=== PATIENT | female | born 1995 | race Hispanic/Latino ===

== ENCOUNTER 2021-01-13 07:44 | Outpatient (CLI) | payer OTHER, SELFPAY ==
--- NOTE | ~2021-01-13 | US_ITS ---
EXAMINATION: US OB <=14 wk fetus w TV DATE: 01/13/2021 08:54 INDICATION: Establish dating of during first trimester TECHNIQUE: Real-time pelvic ultrasound utilizing both a transvaginal and transabdominal probe was pe rformed. The interpreting radiologist was not present for the study. COMPARISON: None. FINDINGS: The uterus measures 10.5 x 9.2 x 5.9 cm. There is an intrauterine gestational sac. A yolk sac and fe douglas pole are identified. The crown rump length measures 7 mm, which correlates with an estimated gest ational age of 6 weeks and 5 days. heart motion is identified measuring 116 beats per minute (b pm) by M-mode Doppler. There is suggestion of a 5 cm isoechoic fibroid at the right side of the uteri ne fundus. The right ovary measures 3.7 x 2.1 x 2.5 cm. Vascular flow identified in the right ovary on color Dop pler. The left ovary is not visualized. There is no free fluid in the pelvis. IMPRESSION: 1. Single living fetus with heart rate of 116 bpm. 2. Gestational age by ultrasound of 6 weeks 4 day(s) +/- 4 day(s) with ultrasound estimated date of delivery (YUE) of 09/04/2021. 3. Suggestion of a 5 cm fibroid at the right side of the uterine fundus Reviewed, dictated and finalized at location A. IMPRESSION: 1. Single living fetus with heart rate of 116 bpm. 2. Gestational age by ultrasound of 6 weeks 4 day(s) +/- 4 day(s) with ultraso und estimated date of delivery (YUE) of 09/04/2021. 3. Suggestion of a 5 cm fibroid at the right side of the uterine fundus
== END 2021-01-13 07:45 | disposition home or self-care (01) ==
PROVIDERS: PCP Physician Assistant; Visit Provider Physician Assistant
DX: Z36.87 Encounter for antenatal screening for uncertain dates (principal); Z3A.01 Less than 8 weeks gestation of pregnancy
CPT/HCPCS: 76801; 76817

== ENCOUNTER 2021-02-25 09:50 | Outpatient (CLI) | payer OTHER, SELFPAY ==
--- NOTE | ~2021-02-25 | US_ITS ---
EXAMINATION: US OB <= 14 weeks fetus DATE: 02/25/2021 10:34 INDICATION: Inconclusive viability during late first trimester of TECHNIQUE: Real-time pelvic ultrasound utilizing both a transvaginal and transabdominal probe was pe rformed. The interpreting radiologist was not present for the study. COMPARISON: 01/13/2021 FINDINGS: The uterus measures 13.4 x 6.7 x 10.4 cm. There is an intrauterine gestational sac with single fetus . The crown rump length measures 6.2 cm, which correlates with an estimated gestational age of 12 wee ks and 4 days. heart motion is identified measuring 142 beats per minute (bpm) by M-mode Dopple r. The right ovary measures 2.7 x 5.9 x 2.9 cm. Vascular flow identified in the right ovary on color Dop pler. The left ovary is not visualized. There is no free fluid in the pelvis. IMPRESSION: 1. Single living fetus with heart rate of 142 bpm. 2. Gestational age by ultrasound of 12 weeks 4 day(s) +/- 1 week and 1 day with ultrasound estimated date of delivery (YUE) of 09/05/2021. Reviewed, dictated and finalized at location A. IMPRESSION: 1. Single living fetus with heart rate of 142 bpm. 2. Gestational age by ultrasound of 12 weeks 4 day(s) +/- 1 week and 1 day wit h ultrasound estimated date of delivery (YUE) of 09/05/2021.
== END 2021-02-25 09:51 | disposition home or self-care (01) ==
PROVIDERS: PCP Physician Assistant; Visit Provider Obstetrics & Gynecology
DX: O36.80X0 Pregnancy with inconclusive fetal viability, not applicable or unspecified (principal); Z3A.12 12 weeks gestation of pregnancy
CPT/HCPCS: 76801

== ENCOUNTER 2021-04-06 11:00 | Outpatient (CLI) | payer OTHER, SELFPAY ==
--- NOTE | ~2021-04-06 | US_ITS ---
EXAMINATION: US OB /maternal detail DATE: 04/06/2021 12:49 INDICATION: Second trimester anatomic survey TECHNIQUE: Real-time ultrasound of the pelvis was performed. COMPARISON: 02/25/2021 FINDINGS: There is a single living fetus in vertex presentation. The placenta is posterior and 7 mm from the in ternal cervical os. heart rate is 167 beats per minute (bpm). cardiac activity and movement are noted. The amniotic fluid index is 12.6 cm which is normal. The following anatomy was identified as normal: 4 chamber heart 3 vessel cord cord insertion kidneys urinary bladder stomach spine diaphragm ventricles cisterna magna cerebellum The following biometric data were obtained: Biparietal diameter (BPD): 4.1 cm; head circumference (HC): 15.5 cm; abdominal circumference (AC): 13 .0 cm; femur length (FL): 2.7 cm. These measurements are concordant. Estimated weight is 242 g +/- 36 g, which correlates with the 49th percentile when 09/04/2021 i s used as estimated date of delivery. As single measurements, these parameters are each equal to the following estimated gestational ages w ith ranges of +/- 2 standard deviations: BPD: 18 weeks 4 days +/- 1 weeks 5 days. HC: 18 weeks 3 days +/- 1 weeks 3 days. AC: 18 weeks 4 days +/- 2 weeks 0 days. FL: 18 weeks 3 days +/- 1 weeks 6 days. estimated gestational age based solely on measurements from this exam is 18 weeks 4 days +/- 1 weeks 2 days. IMPRESSION: 1. Single living fetus in vertex presentation. 2. Estimated weight is 242 g +/- 36 g, which correlates with the 49th percentile when 1 is used as estimated date of delivery. 3. Low-lying placenta. Reviewed, dictated and finalized at location A. IMPRESSION: 1. Single living fetus in vertex presentation. 2. Estimated weight is 242 g +/- 36 g, which correlates with the 49th per centile when 09/04/2021 is used as estimated date of delivery. 3. Low-lying placenta.
== END 2021-04-06 11:01 | disposition home or self-care (01) ==
LOC: ANHIMG 11:04
PROVIDERS: PCP Physician Assistant; Visit Provider Obstetrics & Gynecology
DX: Z36.9 Encounter for antenatal screening, unspecified (principal); O44.40 Low lying placenta NOS or without hemorrhage, unspecified trimester; Z3A.00 Weeks of gestation of pregnancy not specified
CPT/HCPCS: 76805

== ENCOUNTER 2021-04-30 14:45 | Outpatient (CLI) | payer OTHER, SELFPAY ==
--- NOTE | ~2021-04-30 | US_ITS ---
US OB follow up DATE: 04/30/2021 15:35 INDICATION: Low lying placenta TECHNIQUE: Real-time imaging and Doppler analysis COMPARISON: 04/06/2021 obstetrical ultrasound FINDINGS: Live moses intrauterine gestation, fetus in breech presentation, longitudinal lie. Posterior placenta, lower margin 2.3 cm above the internal os. heart rate of 150 bpm. IMPRESSION: Lower placental margin 2.3 cm above the internal os Reviewed, dictated and finalized at Location A. Reviewed, dictated and finalized at location A.
== END 2021-04-30 14:46 | disposition home or self-care (01) ==
LOC: ANHIMG 14:46
PROVIDERS: PCP Physician Assistant; Visit Provider Obstetrics & Gynecology
DX: O44.42 Low lying placenta NOS or without hemorrhage, second trimester (principal); Z3A.00 Weeks of gestation of pregnancy not specified
CPT/HCPCS: 76816

== ENCOUNTER → 2021-06-08 15:12 | Outpatient (CLI) | payer OTHER, SELFPAY ==
--- NOTE | ~2021-06-08 | US_ITS ---
EXAMINATION: US OB limited DATE: 06/08/2021 15:34 INDICATION: Low-lying placenta, second trimester TECHNIQUE: Real-time ultrasound of the pelvis was performed. The interpreting radiologist was not pre sent for the study. COMPARISON: 04/30/2021 FINDINGS: There is a single living fetus in breech presentation. The placenta is posterior and 5 mm f rom the internal cervical os. cardiac activity and movement are noted. heart rate i s 157 beats per minute (bpm). The amniotic fluid index is subjectively normal. IMPRESSION: 1. Single living fetus in breech presentation. 2. Marginal placenta previa. Reviewed, dictated and finalized at location A.
== END ==
PROVIDERS: Visit Provider Obstetrics & Gynecology
DX: Z36.87 Encounter for antenatal screening for uncertain dates (principal); O44.22 Partial placenta previa NOS or without hemorrhage, second trimester
CPT/HCPCS: 76815

== ENCOUNTER → 2021-07-02 15:29 | Outpatient (CLI) | payer OTHER, SELFPAY ==
--- NOTE | ~2021-07-02 | US_ITS ---
US OB limited 07/02/2021 15:46 Indication: Placenta previa Procedure: High-resolution transabdominal limited obstetrical ultrasound Comparison: Ultrasound dated 06/08/2021 Findings: There is a single living intrauterine in vertex presentation. Placenta is posteri or measuring 2 cm to the cervix. heart rate is 134 BPM. Amniotic fluid is subjectively normal. Impression: 1: Single living intrauterine in vertex presentation. 2: Low-lying posterior placenta measuring 2 cm to the cervix. Reviewed, dictated and finalized at location B. Impression: 1: Single living intrauterine in vertex presentation. 2: Low-lying posterior placenta measuring 2 cm to the cervix.
== END ==
PROVIDERS: Visit Provider Obstetrics & Gynecology
DX: O44.40 Low lying placenta NOS or without hemorrhage, unspecified trimester (principal)
CPT/HCPCS: 76815

== ENCOUNTER → 2021-07-23 15:28 | Outpatient (CLI) | payer OTHER, SELFPAY ==
--- NOTE | ~2021-07-23 | US_ITS ---
US OB limited 07/23/2021 15:49 Indication: Follow-up low lying placenta Procedure: High-resolution Limited obstetrical ultrasound Comparison: 07/02/2021 Findings: There is a single living intrauterine and vertex presentation with heart ra te of 138 BPM. Placenta is posterior and low lying measuring 2.7 cm to the cervix. Amniotic fluid is subjectively normal. Impression: 1: Low-lying posterior placenta measuring 2.7 cm to the cervix. Reviewed, dictated and finalized at location A. INAL DEFENSE LAWYER Impression: 1: Low-lying posterior placenta measuring 2.7 cm to the cervix.
== END ==
PROVIDERS: Visit Provider Obstetrics & Gynecology
DX: O44.40 Low lying placenta NOS or without hemorrhage, unspecified trimester (principal); Z3A.00 Weeks of gestation of pregnancy not specified
CPT/HCPCS: 76815

== ENCOUNTER 2021-08-30 14:45 | Inpatient (IN) | payer OTHER, SELFPAY ==
[2021-08-30] VITALS (9 sets, daily range): BP systolic 105–124; BP diastolic 56–77; PULSE 66–81; RESP 20; TEMP 36.6–36.9; BMI 35.9
[2021-08-30 15:25] LABS: Basophils Absolute Auto 0.1 K/mm3 (0.0-0.1); Basophils Percent Auto 0.4 % (0.2-1.2); Eosinophils Absolute Auto 0.1 K/mm3 (0-0.3); Eosinophils Percent Auto 0.7 % (0-4.4); Hematocrit 35.2 % (37.0-47.0); Hemoglobin 12.2 g/dL (12.0-15.0); Immature Granulocyte Absolute 0.14 K/mm3 (0.00-0.031); Lymphocytes Absolute Auto 2.21 K/mm3 (0.9-3.2); Lymphocytes Percent Auto 16.3 % (18.3-44.2); Mean Corpuscular HGB Conc 34.7 g/dl (32-36); Mean Corpuscular Hemoglobin 29.6 pg (26-34); Mean Corpuscular Volume 85.4 fl (80-100); Mean Platelet Volume 10.7 fl (7.4-10.4); Monocytes Absolute Auto 0.9 K/mm3 (0.1-0.6); Monocytes Percent Auto 6.5 % (2.6-8.5); Neutrophils Absolute Auto 10.2 K/mm3 (1.3-6.7); Neutrophils Percent Auto 75.1 % (45.5-73.1); Platelet Count Result 233 k/mm3 (150-375); Red Blood Count 4.12 M/mm3 (4.2-5.4); Red Cell Distribution Width 13.2 % (11.5-14.5); White Blood Count 13.6 K/mm3 (4.5-10.0)
--- NOTE | 2021-08-30 15:27 | LDADM ---
This patient, Lori Gay, was admitted to Labor/Delivery/Recovery 108 on 08/30/21 at 14:45. Plans for labor, pain management and were discussed with patient. Patient/family oriented to hospital policies and general routines including ID bracelet, bed and alarms, visiting hours, pain management, procedures, bathroom and other care routines, personal items, smoking policy, room service/diet and guest tray routines, infant security routines, and visiting hours. Patient/Family are encouraged to report perceived risks to care and to ask questions if they do not understand what they are told or what they should do. See OBIX for further documentation.
[2021-08-30] MEDS: DINOPROSTONE 10 MG VAG INSERT VAGINAL (15:56)
--- NOTE | 2021-08-30 17:25 | P.PNAN_ITS ---
Anes - Eval Pre Procedure Procedure: labor epidural Date/Time: 08/30/21 17:25 Surgeon: brie Pre Op Diagnosis: IOL Patient Data Age: 26 Gender: F Height: 1.7 m Weight: 104 kg Last Vital Signs Temp 36.8 C 08/30/21 16:00 Pulse 66 08/30/21 17:00 BP 114/77 08/30/21 17:00 Allergies Allergy/AdvReac Type Severity Reaction Status Date / Time Sulfa (Sulfonamide Allergy Unknown HIVES Verified 08/30/21 15:45 Antibiotics) Home Medications Medication Instructions Recorded Confirmed Type ergocalciferol (vitamin D2) 1,250 mcg PO 2XW 08/28/21 08/28/21 History [Vitamin D2] prenat.vits,fernando,[id number] 1 tablet PO DAILY 08/28/21 08/28/21 History [ #2] Laboratory Tests 08/30/21 08/30/21 08/30/21 15:20 15:20 15:20 WBC 13.6 K/mm3 H K/mm3 (4.5-10.0) RBC 4.12 M/mm3 L M/mm3 (4.2-5.4) Hgb 12.2 g/dL g/dL (12.0-15.0) Hct 35.2 % L % (37.0-47.0) MCV 85.4 fl fl (80-100) MCH 29.6 pg pg (26-34) MCHC 34.7 g/dl g/dl (32-36) RDW 13.2 % % (11.5-14.5) Plt Count 233 k/mm3 k/mm3 (150-375) MPV 10.7 fl H fl (7.4-10.4) Immature Gran % (Auto) 1.0 % H % (0-0.5) Neut % (Auto) 75.1 % H % (45.5-73.1) Lymph % (Auto) 16.3 % L % (18.3-44.2) Talbot % (Auto) 6.5 % % (2.6-8.5) Eos % (Auto) 0.7 % % (0-4.4) Baso % (Auto) 0.4 % % (0.2-1.2) Lymph # (Auto) 2.21 K/mm3 K/mm3 (0.9-3.2) Talbot # (Auto) 0.9 K/mm3 H K/mm3 (0.1-0.6) Eos # (Auto) 0.1 K/mm3 K/mm3 (0-0.3) Baso # (Auto) 0.1 K/mm3 K/mm3 (0.0-0.1) Abs Immat Gran (auto) 0.14 K/mm3 H K/mm3 (0.00-0.031) Absolute Neuts (auto) 10.2 K/mm3 H K/mm3 (1.3-6.7) Absolute Nucleated RBC 0.0 K/mm3 K/mm3 (0.0-0.012) Nucleated RBC % 0.0 % % (0.0-0.2) RPR Pending Blood Type B Positive Antibody Screen Negative Patient hx anesthesia problems: none Family hx anesthesia problems: none Results Review: All pre-operative results and documents have been reviewed as part of the pre-operative evaluation. [facility] Family History Family History (Updated 08/28/21 @ 13:37 by Shanell Garcia RN) Grandparent Diabetes type 2, controlled Mother Anemia Social History Social History Smoking status: Never smoker Substance use: never Spiritual care concerns: No Exam Day of Procedure 08/30/21 17:25
[2021-08-30] MEDS: fentaNYL CITRATE INJ (*CRX) 100 MCG/2 ML VIAL IV PUSH (23:34)
[2021-08-31] VITALS (204 sets, daily range): BP systolic 79–141; BP diastolic 39–109; PULSE 25–177; TEMP 36.2–38.4; O2SAT 86–100
[2021-08-31] MEDS: LACTATED RINGERS 1,000 ML 125 ML IV CONT ×5 (00:21→16:05)
[2021-08-31] MEDS: FAMOTIDINE 20 MG/2 ML VIAL IV PUSH (02:20)
[2021-08-31] MEDS: fentaNYL CITRATE INJ (*CRX) 100 MCG/2 ML VIAL 50 MCG IV PUSH (02:21)
[2021-08-31] MEDS: OXYTOCIN 30 UNITS/NS 500 ML 30 UNITS/500 ML BAG 6 UNITS IV CONT (05:13)
[2021-08-31] MEDS: miSOPROStol 25 MCG TABLET VAGINAL (08:58)
--- NOTE | 2021-08-31 09:00 | WPDOBADMIT ---
Obstetrics - Admit Note Admission Note: record reviewed. No pertinent additions to the history and/or any subsequent changes in the physical findings that are not consistent with the expected course of the were found. cervix 1 cm and thick placed a cytotec 25 mcg in posterior culdesac. Additions to the history and/or subsequent changes in the physical findings follow. None.
[2021-08-31 09:59] LABS: Rapid Plasma Reagin Reactive (NonReactive)
[2021-08-31] MEDS: ONDANSETRON INJ 4 MG/2 ML VIAL IV PUSH (18:24)
--- NOTE | 2021-08-31 23:09 | PM.OBPRVD ---
OB - Delivery Note Procedure Delivery date: 08/31/21 Procedure: events: Labor Induction Intrapartal events: None Induction method: AROM, per misoprostol protocol, per pitocin protocol and per cervidil protocol Delivery monitor: external FHT and external uterine Route of delivery: Quantitative Blood Loss (ml): 110 Anesthesia type: Epidural Disposition: observation [place] Baby Date of : 08/31/21 Time of : 22:51 Weeks of gestation at delivery: 39 Infant gender: Female Weight (pounds): 8 Weight (ounces): 9 presentation: vertex position: Left Occiput Anterior Placenta delivery description: Spontaneous cord vessel description: 3 Vessels score one minute: 8 score five minutes: 9
[2021-08-31] MEDS: OXYTOCIN 30 UNITS/NS 500 ML 30 UNITS/500 ML BAG 125 UNITS IV CONT (23:30)
[2021-08-31] MEDS: IBUPROFEN 600 MG TABLET PO (23:30)
[2021-09-01] VITALS (10 sets, daily range): BP systolic 84–129; BP diastolic 44–74; PULSE 68–93; RESP 16–18; TEMP 36.3–37.1; O2SAT 97–100
[2021-09-01 04:07] LABS: Hematocrit 36.1 % (37.0-47.0); Hemoglobin 12.3 g/dL (12.0-15.0)
[2021-09-01] MEDS: MULTIVIT/MIN/PREN/FOL AC/IRON TABLET 1 TAB PO (07:25)
[2021-09-01] MEDS: DOCUSATE SODIUM 100 MG CAPSULE PO (07:26)
[2021-09-01] MEDS: IBUPROFEN 600 MG TABLET PO ×2 (07:26→16:00)
--- NOTE | 2021-09-01 07:51 | PM.OBPNVD ---
OB - PN: Subj Subjective Date/time seen: 09/01/21 07:51 Patient comments: no complaints and pain well controlled baby status: doing well OB - PN: Obj Data Labs CBC & Chem 7: 09/01/21 03:51 Labs: Laboratory Results - last 24 hr 08/30/21 09/01/21 15:20 03:51 Hgb 12.3 Hct 36.1 L RPR Reactive A OB - PN A/P Plan day: 1 Plan: routine care Time Spent With Patient Time: Total time spent is greater than 50% in coordination of care (as documented) at patient's floor/unit and/or counseling patient: Exam : Bimanual exam- vagina & uterus: other (Uterus firm, nt @U)
--- NOTE | 2021-09-01 08:51 | WPDANLDPN2 ---
Anes-Prog Note L&D Date/Time: 09/01/21 08:51 Comfortable throughout: labor and delivery Neuraxial method: epidural Epidural/Spinal procedure site: clean & non-tender Neuro status: Neuro function grossly intact. Cardiovascular status: normal Respiratory status: normal Airway patency: baseline Mental status: baseline Post-Op hydration status: normal Vital Signs: Last Vital Signs Temp 36.3 C L 09/01/21 04:01 Pulse 72 09/01/21 03:55 Resp 16 09/01/21 04:01 BP 115/68 09/01/21 03:55 Pulse Ox 100 08/31/21 22:01 Pain score (VAS): 0 I/O: Intake & Output 08/31/21 09/01/21 09/01/21 23:59 07:59 15:59 Intake Total 1500 1000 Output Total 258 Balance 1500 742 Post-procedural complaints: none Patient feedback: Patient satisfied with anesthetic care.
--- NOTE | 2021-09-01 09:46 | OBPPTRN ---
0715 Patient transferred to post room #287 via W/C. Support person present. Oriented to unit, room, information board, rooming in, admission packet and security measures. Patient verbalizes understanding.
[2021-09-02] MEDS: ACETAMINOPHEN 325 MG TABLET 650 MG PO ×2 (01:28→08:33)
[2021-09-02] MEDS: IBUPROFEN 600 MG TABLET PO ×2 (01:29→08:32)
[2021-09-02] MEDS: TETANUS,DIPHTHERIA,AC PERTUSSIS ADULT (0.5 ML) BOOSTRIX IM (03:34)
[2021-09-02 07:50] VITALS: BP 134/92; PULSE 71; RESP 16; TEMP 37.2; O2SAT 99
[2021-09-02 08:30] VITALS: PULSE 71; RESP 16; O2SAT 99
[2021-09-02] MEDS: MULTIVIT/MIN/PREN/FOL AC/IRON TABLET 1 TAB PO (08:32)
[2021-09-02] MEDS: CALCIUM CARBONATE (TUMS) 500 MG (200 MG ELEMENTAL) (08:32)
[2021-09-02] MEDS: DOCUSATE SODIUM 100 MG CAPSULE PO (08:32)
--- NOTE | 2021-09-02 12:14 | PC.NURSE ---
Patient viewed the discharge video Mother & Baby Care, The First Two Weeks . Patient was given the opportunity and encouraged to ask questions. Patient verbalized understanding of information shared and has been given the mother/baby guide for home reference.
[2021-09-03 16:07] LABS: Treponema pallidum Ab FTA ABS Nonreactive (Nonreactive)
--- NOTE | 2021-09-11 08:07 | PM.OBDSVD ---
DS: Admitting Diagnosis Discharge Date 09/02/21 Admitting Diagnosis Induction of labor OB - DS: Summary OB Procedures : NST and Ultrasound OB Procedures Intrapartum: Spontaneous Vag Delivery OB Procedures: : None Time Spent with Patient Time attestation: Total time spent providing and/or coordinating discharge services: Discharge Plan Discharge Attending physician on discharge: Ferdinand Asencio Consulting providers: Cyndi Ibarra Discharging Clinician: Ferdinand Asencio Patient Disposition: Home, Self-Care Activity: may shower and pelvic rest Diet: regular Discharge Instructions: Education: Mom and Baby Guide Given to: Mother Follow-Up: Call your delivering provider's office for an appointment to be seen in: Call for appointment [facility] baby [facility] the follow-up appointment. Appointment Date/Time: August at 10:00 a.m. What to expect at your follow-up visit: Blood Pressure Check Physical Assessment Call [phone] if you are unable to keep your appointment time. BREAST CARE: * Wear a snug supportive bra. * For engorgement discomfort: Breast Feeding: * Apply warm moist washcloths * Express milk as needed to relieve engorgement * Wear loose clothing * For sore nipples: * Identify correct latch-on * Apply warm moist washcloths before and after nursing * Air dry nipples after nursing * May apply Lansinoh cream to nipples EPISIOTOMY/PERINEAL CARE: * Until bleeding stops, use your cheyanne bottle after urinating * Change your pad frequently throughout the day * You may take sitz baths several times a day (fill your bathtub with warm water and soak for 20 minutes.) Do NOT bathe in the water * No tub baths until seen by your physician - You may shower ACTIVITY: * Rest as much as possible. * Do not exercise or lift anything heavier than your baby (such as laundry or other children.) * Avoid stairs or driving as much as possible. * Do not put anything into the vagina. No douching, tampons, or sexual activity until seen by physician. NOTIFY PHYSICIAN IF YOU HAVE ANY QUESTIONS OR IF ANY OF THE FOLLOWING SYMPTOMS OCCUR: * If your vaginal bleeding becomes foul smelling. * If your vaginal bleeding becomes more heavy than a period or if your bleeding changes from pink to bright red. However, you may pass an occasional walnut-sized clot once or twice for the first week . * If you experience a sharp, shooting pain in you calves. * If you discover a hard, reddened area on your breast or if you experience flu-like symptoms. DIET: * Eat regular, well-balanced meals. * Drink plenty of fluids daily. If , drink to thirst. Stand Alone Forms: General Discharge Information Follow-up/Referrals: Ferdinand Asencio MD [Physician] - Call for Appointment Discharge Medications: New norethindrone (contraceptive) 0.35 mg tablet 0.35 mg PO DAILY Qty: 28 RF: 6 Continued ergocalciferol (vitamin D2) [Vitamin D2] 1,250 mcg (50,000 unit) Capsule 1,250 mcg PO 2XW RF: 0 prenat.vits,fernando,uoe-jcao-bbezv Tablet 1 tablet PO DAILY RF: 0 Date of admission: 08/30/21 14:45 Primary Care Provider: Kiya,Dianna Admitting Provider: Ferdinand Asencio Attending physician on admission: Ferdinand Asencio Condition: Stable
== END 2021-09-02 14:10 | disposition home or self-care (01) | DRG 806 ==
LOC: ANHLDR 08-31 23:15 → ANHOB2 09-01 07:19
PROVIDERS: Admitting Provider Obstetrics & Gynecology; PCP Physician Assistant; Visit Provider Obstetrics & Gynecology
DX: O99.62 Diseases of the digestive system complicating childbirth (principal); O75.2 Pyrexia during labor, not elsewhere classified; Z37.0 Single live birth; Z3A.39 39 weeks gestation of pregnancy; K21.9 Gastro-esophageal reflux disease without esophagitis; O36.8330 Maternal care for abnormalities of the fetal heart rate or rhythm, third trimester, not applicable or unspecified
CPT/HCPCS: 36415; 85014; 85018; 85025; 86592; 86780; 86850; 86900; 86901; 90715; A9270; J2405; J2590; J2795; J3010; J7120

== ENCOUNTER 2022-07-19 15:18 | Outpatient (CLI) | payer OTHER, SELFPAY ==
--- NOTE | ~2022-07-19 | US_ITS ---
EXAMINATION: US OB <= 14 weeks fetus DATE: 07/19/2022 17:08 INDICATION: First trimester dating TECHNIQUE: Real-time pelvic transabdominal and transvaginal ultrasound was performed. COMPARISON: None. FINDINGS: The uterus measures 10.1 x 4.9 x 9.1 cm. There is an intrauterine gestational sac. A yolk sac is identified. heart motion is identified measuring 134 beats per minute (bpm) by M-mode Do ppler. The crown rump length measures 5 mm, which correlates with an estimated gestational age of 6 weeks and 1 day(s) (+/-) 4 day(s). The right ovary measures 2.9 x 1.5 x 1.6 cm. The left ovary measures 3.7 x 1.9 x 3.0 cm. There is nor mal vascular flow in the ovaries. There is no free fluid in the pelvis. IMPRESSION: 1. Live intrauterine with an estimated gestational age of 6 weeks and 1 day(s) (+/-) 4 day( s) and an estimated delivery date of 03/13/2023. Reviewed, dictated and finalized at location B. ING BOX TENDER IMPRESSION: 1. Live intrauterine with an estimated gestational age of 6 weeks and 1 day(s) (+/-) 4 day(s) and an estimated delivery date of 03/13/2023.
== END 2022-07-19 15:19 | disposition home or self-care (01) ==
PROVIDERS: PCP Physician Assistant; Visit Provider Advanced Practice Midwife
DX: Z36.87 Encounter for antenatal screening for uncertain dates (principal); Z3A.01 Less than 8 weeks gestation of pregnancy
CPT/HCPCS: 76801

== ENCOUNTER 2022-08-10 15:34 | Outpatient (CLI) | payer OTHER, SELFPAY ==
--- NOTE | ~2022-08-10 | US_ITS ---
EXAMINATION: US OB <=14 wk fetus w TV DATE: 08/10/2022 16:35 INDICATION: Vaginal spotting first trimester TECHNIQUE: Real-time transabdominal and transvaginal obstetric ultrasound. FINDINGS: Comparison to ultrasound dated 07/19/2022 The uterus measures 15.5 x 7.1 x 5.9 cm. The endometrium is thickened measuring 1.6 cm with heterogen eous appearance. No discrete intrauterine gestational sac or pole are identified. The right ova ry is normal measuring 3.1 x 2.2 x 1.5 cm. The left ovary is not visualized. IMPRESSION: 1. No evidence for intrauterine on current examination. Endometrium is thickened and hetero geneous measuring 1.6 cm. Findings most compatible with failed with possible retained produ cts of conception. Recommend follow-up with serial quantitative beta-hCG levels and ultrasound as cli nically indicated. Reviewed, dictated and finalized at location A. UTER PERIPHERAL EQUIPMENT OPERATOR IMPRESSION: 1. No evidence for intrauterine on current examination. Endometrium i s thickened and heterogeneous measuring 1.6 cm. Findings most compatible with f fracisco with possible retained products of conception. Recommend follow -up with serial quantitative beta-hCG levels and ultrasound as clinically indic ated.
== END 2022-08-10 15:35 | disposition home or self-care (01) ==
PROVIDERS: PCP Physician Assistant; Visit Provider Obstetrics & Gynecology Gynecology
DX: O26.851 Spotting complicating pregnancy, first trimester (principal)
CPT/HCPCS: 76801; 76817

== ENCOUNTER → 2023-01-17 13:25 | Outpatient (CLI) | payer OTHER, SELFPAY ==
--- NOTE | ~2023-01-17 | US_ITS ---
Pelvic ultrasound. Clinical History: First trimester , assess dates and viability Technique: Realtime transabdominal and transvaginal scanning of the pelvis was performed. Color flow Doppler and Doppler spectral analysis were performed. Findings: The uterus is anteverted. Endometrial cavity appears to split into distinct cornua, consist ent with septate uterus. Within the right uterine horn, there is an intrauterine gestational sac, wit h crown-rump length of 7 mm, which corresponds to an estimated gestational age of 6 weeks 4 days. Fet al heart rate is 123 bpm.. The right ovary measures 3.7 x 1.9 x 1.7 cm. No significant right ovarian or adnexal mass is seen. The left ovary measures 4.0 x 2.4 x 3.6 cm. No significant left ovarian or adnexal mass is seen. There is no evidence of free fluid in the cul de sac. Impression: Live intrauterine gestation with estimated gestational age of 6 weeks 4 days. heart rate is 123 bpm. Sonographic YUE is 09/08/2023. Septate uterus. Intrauterine gestation is within the right uterine horn. Reviewed, dictated and finalized at location . Impression: Live intrauterine gestation with estimated gestational age of 6 weeks 4 days. F etal heart rate is 123 bpm. Sonographic YUE is 09/08/2023. Septate uterus. Intrauterine gestation is within the right uterine horn.
== END ==
PROVIDERS: PCP Advanced Practice Midwife; Visit Provider Obstetrics & Gynecology Gynecology
DX: O26.21 Pregnancy care for patient with recurrent pregnancy loss, first trimester (principal); Z3A.01 Less than 8 weeks gestation of pregnancy
CPT/HCPCS: 76801

== ENCOUNTER → 2023-04-12 15:18 | Outpatient (CLI) | payer OTHER, SELFPAY ==
--- NOTE | ~2023-04-12 | US_ITS ---
EXAMINATION: US OB /maternal detail DATE: 04/12/2023 16:02 INDICATION: Assess anatomy during second trimester . TECHNIQUE: Multiple obstetric sonographic images performed. FINDINGS: There is a single living fetus in variable presentation. The placenta is anterior and not low-lying with caudal margin 9.4 cm from the internal cervical os. Amniotic fluid volume is subjectively normal . Normal cervical length of 5 cm. heart rate of 145 beats per million (bpm). The following anatomy was identified as normal: Ventricles, choroid plexus, falx and cava septum pellucidum Cerebellum and cisterna magna Nuchal fold Spine Heart Diaphragm Stomach Kidneys Bladder 3 vessel cord and cord insertion Bilateral upper and lower extremities including hands and feet The upper lip was unable to be viewed in the coronal plane. The following biometric data were obtained: BPD: 4.0 cm -> 18 weeks 1 days Head circumference: 14.9 cm -> 18 weeks 0 days Abdominal circumference: 12.9 cm -> 18 weeks 3 days Femur length: 2.5 cm -> 17 weeks 5 days These measurements are concordant. Head circumference to abdominal circumference ratio: 1.16 (normal range 1.08-1.27). Estimated weight: 223 g (+/-) 33 g. or 8 oz. (+/-) 1 oz. IMPRESSION: 1. Single living fetus with variable presentation with heart rate of 145 bpm. 2. Biometric data yields an estimated gestational age by ultrasound of 18 weeks and 1 day with ultras ound estimated date of delivery (YUE) of 09/12/2023. This is concordant within 4 days of the YUE of based upon the earliest ultrasound performed at this institution on 01/17/2023. Estimated weight is 15th percentile by Hadlock criteria when 09/08/2023 is used as the YUE. Please correlate w ith clinical information or earlier ultrasounds for most accurate YUE. 3. Normal survey aside from inability to visualize the upper lip in the coronal plane. Reviewed, dictated and finalized at location A. IMPRESSION: 1. Single living fetus with variable presentation with heart rate of 145 bpm. 2. Biometric data yields an estimated gestational age by ultrasound of 18 weeks and 1 day with ultrasound estimated date of delivery (YUE) of 09/12/2023. This i s concordant within 4 days of the YUE of 09/08/2023 based upon the earliest ult rasound performed at this institution on 01/17/2023. Estimated weight is 15 th percentile by Hadlock criteria when 09/08/2023 is used as the YUE. Please co rrelate with clinical information or earlier ultrasounds for most accurate YUE. 3. Normal survey aside from inability to visualize the upper lip in the c oronal plane.
== END ==
PROVIDERS: PCP Advanced Practice Midwife; Visit Provider Advanced Practice Midwife
DX: Z36.9 Encounter for antenatal screening, unspecified (principal); Z3A.00 Weeks of gestation of pregnancy not specified
CPT/HCPCS: 76805

== ENCOUNTER → 2023-04-29 11:19 | Outpatient (CLI) | payer OTHER, SELFPAY ==
--- NOTE | ~2023-04-29 | US_ITS ---
EXAMINATION: US OB follow up DATE: 04/29/2023 11:44 INDICATION: Second trimester anatomic survey follow-up TECHNIQUE: Real-time ultrasound of the pelvis was performed. The interpreting radiologist was not pre sent for the study. COMPARISON: 04/12/2023 FINDINGS: There is a single living fetus in transverse lie. The placenta is anterior and 9.7 cm from the internal cervical os. The measured cervical length is 3.3 cm. cardiac activity and mo vement are noted. heart rate is 133 beats per minute (bpm). The amniotic fluid index is subject ively normal. The upper lip is normal in appearance. The following biometric data were obtained: Biparietal diameter (BPD): 5.0 cm; head circumference (HC): 18.6 cm; abdominal circumference (AC): 16 .5 cm; femur length (FL): 3.7 cm. These measurements are concordant. Estimated weight is 435 g +/- 65 g, which correlates with the 69th percentile when 09/08/2023 i s used as estimated date of delivery. As single measurements, these parameters are each equal to the following estimated gestational ages w ith ranges of +/- 2 standard deviations: BPD: 21 weeks 2 days ( 19 weeks 4 days - 23 weeks 0 days). HC: 20 weeks 6 days ( 19 weeks 3 days - 22 weeks 3 days). AC: 21 weeks 4 days ( 19 weeks 3 days - 23 weeks 4 days). FL: 21 weeks 6 days ( 20 weeks 0 days - 23 weeks 5 days). estimated gestational age based solely on measurements from this exam is 21 weeks 3 days +/- 1 weeks 3 days. IMPRESSION: 1. Single living fetus in transverse lie. 2. Normal-appearing upper lip. 3. Estimated weight is 435 g +/- 65 g, which correlates with the 69th percentile when 3 is used as estimated date of delivery. Reviewed, dictated and finalized at location B. IMPRESSION: 1. Single living fetus in transverse lie. 2. Normal-appearing upper lip. 3. Estimated weight is 435 g +/- 65 g, which correlates with the 69th per centile when 09/08/2023 is used as estimated date of delivery.
== END ==
PROVIDERS: PCP Obstetrics & Gynecology Gynecology; Visit Provider Obstetrics & Gynecology Gynecology
DX: Z36.2 Encounter for other antenatal screening follow-up (principal); Z3A.21 21 weeks gestation of pregnancy
CPT/HCPCS: 76816

== ENCOUNTER → 2023-07-16 11:02 | Outpatient (CLI) | payer OTHER, SELFPAY ==
--- NOTE | ~2023-07-16 | US_ITS ---
EXAMINATION: US OB follow up DATE: 07/16/2023 11:41 INDICATION: Maternal care for abnormalities of gravid uterus during third trimester of . TECHNIQUE: Real-time ultrasound of the pelvis was performed. The interpreting radiologist was not pre sent for the study. COMPARISON: None. FINDINGS: There is a single living fetus in breech presentation. The placenta is anterior and not low-lying. F etal heart rate is 130 beats per minute (bpm). The amniotic fluid index is 12.5 cm, which is (5th%-9 5%: 8.6-24.2 cm at 32 weeks estimated gestational age). Cervical length measures at least 3.0 cm mei chandler the dorsal distal margins are obscured precluding definitive measurement. The following biometric data were obtained: BPD: 7.5 cm -> 30 weeks 0 days Head circumference: 29.4 cm -> 32 weeks 3 days Abdominal circumference: 28.7 cm -> 32 weeks 5 days Femur length: 5.8 cm -> 30 weeks 3 days These measurements are concordant. Head circumference to abdominal circumference ratio: 1.03 (normal range 0.96-1.16). Borderline dolichocephaly with cephalic index of 69.5. Estimated weight: 1832 g (+/-) 275 g or 4 lbs. 1 oz. (+/-) 10 oz. IMPRESSION: 1. Single living fetus in breech presentation with heart rate of 130 bpm. 2. Normal amniotic fluid index of 12.5 cm. 3. Estimated weight is 24th percentile by Hadlock criteria when 09/08/2023 is used as the estim ated date of delivery (YUE). Please correlate with clinical information or earlier ultrasounds for mo st accurate YUE. 4. Borderline dolichocephaly with cephalic index of 69.5. Reviewed, dictated and finalized at location A. IMPRESSION: 1. Single living fetus in breech presentation with heart rate of 130 bpm. 2. Normal amniotic fluid index of 12.5 cm. 3. Estimated weight is 24th percentile by Hadlock criteria when 3 is used as the estimated date of delivery (YUE). Please correlate with clinic al information or earlier ultrasounds for most accurate YUE. 4. Borderline dolichocephaly with cephalic index of 69.5.
== END ==
PROVIDERS: PCP Advanced Practice Midwife; Visit Provider Advanced Practice Midwife
DX: O34.599 Maternal care for other abnormalities of gravid uterus, unspecified trimester (principal)
CPT/HCPCS: 76816

== ENCOUNTER 2023-09-02 13:59 | Outpatient (CLI) | payer OTHER, SELFPAY ==
[2023-09-02 14:32] VITALS: BP 107/67; PULSE 80
[2023-09-02 14:46] VITALS: BP 119/61; PULSE 89
[2023-09-02 14:56] VITALS: BP 119/61; PULSE 91
--- NOTE | 2023-09-02 15:01 | PC.NURSE ---
Pt complaints of cramping, nausea, headache. pt only had 1C coffee this am and and [place]. Did not take any medications, no Tylenol. Gave pt a jug of water and snack. Educated the importance of staying hydrated and eating meals. Called Dr Ibarra to give report of symptoms, per dr ROSADO done-reactive. Pt states after eating and drinking symptoms resolved, but requesting to be induced. Called Dr Ibarra stated pt request, per Dr Ibarra to keep next follow up and to have a discussion in office. Verbal discharge orders given per Dr Ibarra.
== END 2023-09-02 15:00 | disposition home or self-care (01) ==
LOC: ANHOBOP 14:31 → ANHLDR 14:32
PROVIDERS: PCP Advanced Practice Midwife; Visit Provider Obstetrics & Gynecology Gynecology
DX: R51.9 Headache, unspecified (principal)
CPT/HCPCS: 59025; 99199

== ENCOUNTER 2023-09-06 05:43 | Inpatient (IN) | payer OTHER, SELFPAY ==
[2023-09-06] VITALS (123 sets, daily range): BP systolic 82–128; BP diastolic 50–96; PULSE 75–171; RESP 16–18; TEMP 36–36.8; O2SAT 91–100; BMI 38.0
[2023-09-06] MEDS: LACTATED RINGERS 1,000 ML 125 ML IV CONT ×2 (06:57→07:56)
[2023-09-06] MEDS: fentaNYL CITRATE INJ (*CRX) 100 MCG/2 ML VIAL IV PUSH (07:00)
--- NOTE | 2023-09-06 07:06 | LDADM ---
This patient, Lori Biswas, was admitted to Labor/Delivery/Recovery 106 on 09/06/23 at 05:43. Plans for labor, pain management and were discussed with patient. Patient/family oriented to hospital policies and general routines including ID bracelet, bed and alarms, visiting hours, pain management, procedures, bathroom and other care routines, personal items, smoking policy, room service/diet and guest tray routines, infant security routines, and visiting hours. Patient/Family are encouraged to report perceived risks to care and to ask questions if they do not understand what they are told or what they should do. See OBIX for further documentation.
[2023-09-06 07:10] LABS: Basophils Absolute Auto 0.1 K/mm3 (0.0-0.1); Basophils Percent Auto 0.4 % (0.2-1.2); Eosinophils Absolute Auto 0.5 K/mm3 (0-0.3); Eosinophils Percent Auto 2.6 % (0-4.4); Hematocrit 37.7 % (37.0-47.0); Hemoglobin 12.4 g/dL (12.0-15.0); Immature Granulocyte Absolute 0.23 K/mm3 (0.00-0.031); Immature Granulocyte Percent A 1.3 % (0-0.5); Lymphocytes Absolute Auto 3.39 K/mm3 (0.9-3.2); Lymphocytes Percent Auto 19.4 % (18.3-44.2); Mean Corpuscular HGB Conc 32.9 g/dl (32-36); Mean Corpuscular Hemoglobin 28.1 pg (26-34); Mean Corpuscular Volume 85.3 fl (80-100); Mean Platelet Volume 10.9 fl (7.4-10.4); Monocytes Absolute Auto 1.3 K/mm3 (0.1-0.6); Monocytes Percent Auto 7.3 % (2.6-8.5); Neutrophils Absolute Auto 12.1 K/mm3 (1.3-6.7); Platelet Count Result 246 k/mm3 (150-375); Red Blood Count 4.42 M/mm3 (4.2-5.4); Red Cell Distribution Width 13.6 % (11.5-14.5); White Blood Count 17.5 K/mm3 (4.5-10.0)
--- NOTE | 2023-09-06 07:10 | P.PNAN_ITS ---
Anes - Eval Pre Procedure Procedure: Labor Epidural Date/Time: 09/06/23 07:10 Surgeon: Stacey Preop Diagnosis: Labor Pain Pre Op Diagnosis: Labor Patient Data Age: 28 Gender: F Height: Weight: Last Vital Signs Pulse 79 09/06/23 07:02 BP 128/67 09/06/23 07:02 Allergies Allergy/AdvReac Type Severity Reaction Status Date / Time Sulfa (Sulfonamide Allergy Unknown HIVES Verified 08/27/23 13:55 Antibiotics) Home Medications Medication Instructions Recorded Confirmed Type ergocalciferol (vitamin D2) 1,250 1,250 mcg PO 2XW 08/28/21 08/27/23 History mcg (50,000 unit) capsule (Vitamin D2) prenat.vits,fenrando,[id number] 1 tablet PO DAILY 08/28/21 08/27/23 History Laboratory Tests 09/06/23 07:01 WBC Pending RBC Pending Hgb Pending Hct Pending MCV Pending MCH Pending MCHC Pending RDW Pending Plt Count Pending MPV Pending Immature Gran % (Auto) Pending Neut % (Auto) Pending Lymph % (Auto) Pending [place] % (Auto) Pending Eos % (Auto) Pending Baso % (Auto) Pending Lymph # (Auto) Pending [place] # (Auto) Pending Eos # (Auto) Pending Baso # (Auto) Pending Abs Immat Gran (auto) Pending Absolute Neuts (auto) Pending Absolute Nucleated RBC Pending Nucleated RBC % Pending RPR Pending Patient hx anesthesia problems: none Family hx anesthesia problems: none Results Review: All pre-operative results and documents have been reviewed as part of the pre- operative evaluation. [facility] Family History Family History Grandparent Diabetes type 2, controlled Mother Anemia Social History Social History Smoking status: Never smoker Substance use: never Spiritual care concerns: No Exam Day of Procedure 09/06/23 07:10 Patient weight: normal Heart: regular rate and rhythm Lungs: normal air movement Airway: Mallampati scale class II Neurological: alert and oriented
--- NOTE | 2023-09-06 08:41 | WPDOBADMIT ---
Obstetrics - Admit Note Admission Note: record reviewed. No pertinent additions to the history and/or any subsequent changes in the physical findings that are not consistent with the expected course of the were found. Additions to the history and/or subsequent changes in the physical findings follow. None.
--- NOTE | 2023-09-06 09:04 | PM.OBPNLAB ---
Pain Control Date/time seen: 09/06/23 09:04 Pain control: tolerating well and epidural Pelvic Exam Dilation (cm): 6 Effacement (%): 70 station: -1 Amniotic membrane status: Bulging Contractions Monitor mode: External (unable to trace contractions via toco. ) Contraction intensity: Moderate Status status: Category ll Assessment and Plan Assessment: active labor Comments: CNM to bedside. Discussed plan of care an option for amniotomy. Discussed risks, benefits, and expectations of breaking water. Patient is agreeable. Amniotomy performed and there was a large return of dark green stained amniotic fluid. Patient tolerated procedure well. Anticipate vaginal . Dr. Ibarra updated.
[2023-09-06 10:33] LABS: Rapid Plasma Reagin Non-Reactive (NonReactive)
--- NOTE | 2023-09-06 11:24 | PM.OBPNLAB ---
Pain Control Date/time seen: 09/06/23 11:00 Pain control: tolerating well and epidural Pelvic Exam Dilation (cm): 10 Effacement (%): 100 station: +2 Amniotic membrane status: Ruptured Contractions Monitor mode: Internal (unable to trace contractions via toco. ) Contraction frequency: 3 (2-3) Contraction intensity: Strong/Firm Status status: Category ll Assessment and Plan Assessment: active labor Plan: continuous present management Comments: Face presentation confirmed, mentum anterior. Discussed findings with Dr. Ibarra. Plan to proceed with vaginal .
--- NOTE | 2023-09-06 11:26 | P.PCNOB_ITS ---
OB - Vaginal Delivery Note Procedure Delivery date: 09/06/23 Induction method: None Delivery augmentation: Rupture of Membranes Delivery monitor: External FHT and Internal FHT Route of delivery: Episiotomy description: None Laceration Description: Superficial Specimen: Yes (placenta) Quantitative Blood Loss (ml): 75 Anesthesia type: Epidural Disposition: Floor Complications: No immediate complications [place] Baby Date of : 09/06/23 Weeks of gestation at delivery: 39 Infant gender: Female Weight (pounds): 0 ( not weighed at the time of this note) presentation: vertex position: Other (Mentum anterior) Placenta delivery description: Spontaneous Cord Vessel Description: 3 Vessels score one minute: 6 score five minutes: 9
--- NOTE | 2023-09-06 11:29 | PM.OBDSVD ---
DS: Admitting Diagnosis Discharge Date 09/07/2023 Admitting Diagnosis 28 y.o. at 39 weeks 5 days gestation spontaneous labor DS: Discharge Diagnosis Discharge Diagnosis (1) (normal spontaneous vaginal delivery): Code(s): O80 - Encounter for full-term uncomplicated delivery Status: Acute (2) Mother currently breast-feeding: Code(s): Z39.1 - Encounter for care and examination of lactating mother Status: Acute OB - DS: Summary Hospital Course Hospital Course: uncomplicated OB Procedures : Ultrasound OB Procedures Intrapartum: Spontaneous Vag Delivery OB Procedures: : None Peripartum Data Delivery Method: Natural Vaginal Laceration Description: Superficial Episiotomy description: None complications: none Status at Discharge Functional status at discharge: independent ambulation Overall status at discharge: patient is progressing back to baseline Time Spent with Patient Time attestation: Total time spent providing and/or coordinating discharge services: Exam Narrative: Alert and oriented. Mood is pleasant and cooperative. Perineum with minimal edema. Fundus firm and below umbilicus. Const: General: cooperative, healthy appearing, no acute distress and alert Orientation/consciousness: patient oriented x3 Limitations: no limitations Resp: Effort & Inspection: normal respiratory effort and able to speak in complete sentences Auscultation: clear to auscultation bilaterally Cardio: Rate: regular rate GI: Inspection: normal to inspection Auscultation: normal bowel sounds : General: Yes bladder normal to palpation External Female Exam: other (lochia WNL) Bimanual exam- vagina & uterus: bladder normal to palpation Other: Fundus firm and below U Skin: General skin exam: normal color and no rashes or lesions noted Neuro: General: patient oriented x3 and moves all extremities Cognition (Neuro): normal cognition Extrem: General: normal to inspection and no calf tenderness Psych: Appearance: grossly normal Mental Status: mental status grossly normal Affect: normal affect Thought process: Normal thought process present DS: Data Data Completed and Pending Labs on day of discharge: Labs from last 24 hours 09/06/23 07:01 WBC 17.5 H RBC 4.42 Hgb 12.4 Hct 37.7 MCV 85.3 MCH 28.1 MCHC 32.9 RDW 13.6 Plt Count 246 MPV 10.9 H Immature Gran % (Auto) 1.3 H Neut % (Auto) 69.0 Lymph % (Auto) 19.4 [place] % (Auto) 7.3 Eos % (Auto) 2.6 Baso % (Auto) 0.4 Lymph # (Auto) 3.39 H [place] # (Auto) 1.3 H Eos # (Auto) 0.5 H Baso # (Auto) 0.1 Abs Immat Gran (auto) 0.23 H Absolute Neuts (auto) 12.1 H Absolute Nucleated RBC 0.0 Nucleated RBC % 0.0 RPR Non-reactive Blood Type B Positive Antibody Screen Negative Discharge Plan Discharge Attending physician on discharge: Cyndi Ibarra Discharging Clinician: Kimberley Daley Anticipated Discharge Date/Time: 09/07/23 11:43 Patient Disposition: Home, Self-Care Activity: may shower, may drive after 2 weeks and pelvic rest Diet: as tolerated and regular Discharge Instructions: Continue taking your vitamin and any other supplements as previously directed (Examples: Iron, Vitamin D). You may take Tylenol 1000mg over the counter every 6 hours as needed for pain. Do not exceed 4000mg of Tylenol daily. You may continue using tucks pads and dermoplast spray if needed for a few more days. Depression Notify provider for signs or symptoms. These may include- Feelings: Feeling anxious, angry, hopeless, guilt, or loss of interest/pleasure in activities you normally enjoy. Mood swings or panic attacks. General: Extreme fatigue, loss of your appetite, feeling restless. Crying excessively, irritability, insomnia Psychological: Lack of concentration, depression or fear, unwanted thoughts
[2023-09-06] MEDS: BENZOCAINE 20% AER SPR (*SP) 56 GM CAN 1 SPRAY TOPICAL (13:20)
[2023-09-06] MEDS: WITCH HAZEL 40 PADS 1 PAD TOPICAL (13:20)
--- NOTE | 2023-09-06 13:30 | PC.NURSE ---
Patient transferred to post room #292 via wheelchair. Support person present. Oriented to unit, room, information board, rooming in, admission packet and security measures. Patient verbalizes understanding.
[2023-09-06] MEDS: MULTIVIT/MIN/PREN/FOL AC/IRON TABLET 1 TAB PO (13:43)
[2023-09-06] MEDS: IBUPROFEN 600 MG TABLET PO ×2 (13:44→19:53)
[2023-09-06] MEDS: DOCUSATE SODIUM 100 MG CAPSULE PO (13:44)
[2023-09-06] MEDS: ERGOCALCIFEROL 50,000 UNITS CAPSULE 50000 UNITS PO (19:53)
[2023-09-07] MEDS: IBUPROFEN 600 MG TABLET PO ×2 (01:52→08:35)
[2023-09-07 04:30] VITALS: BP 121/78; PULSE 92; RESP 18; TEMP 36.3; O2SAT 97
[2023-09-07 05:01] LABS: Hematocrit 33.6 % (37.0-47.0); Hemoglobin 10.9 g/dL (12.0-15.0)
--- NOTE | 2023-09-07 07:23 | WPDANLDPN2 ---
Anes-Prog Note L&D Date/Time: 09/07/23 07:23 Comfortable throughout: labor and delivery Neuraxial method: epidural Epidural/Spinal procedure site: clean & non-tender Neuro status: Neuro function grossly intact. Cardiovascular status: normal Respiratory status: normal Airway patency: baseline Mental status: baseline Post-Op hydration status: normal Vital Signs: Last Vital Signs Temp 36.3 C L 09/07/23 04:30 Pulse 92 09/07/23 04:30 Resp 18 09/07/23 04:30 BP 121/78 09/07/23 04:30 Pulse Ox 97 09/07/23 04:30 O2 Del Method Room Air 09/06/23 20:13 Pain score (VAS): Patient asleep, no nonverbal signs of pain present at this time. I/O: Intake & Output 09/06/23 09/06/23 09/07/23 15:59 23:59 07:59 Intake Total 450 Output Total 125 Balance 325 Post-procedural complaints: none Patient feedback: Patient satisfied with anesthetic care.
[2023-09-07 07:25] VITALS: BP 112/69; PULSE 88; RESP 16; TEMP 37.2; O2SAT 98
--- NOTE | 2023-09-07 07:40 | P.PNOB_ITS ---
OB - PN: Subj Subjective Date/time seen: 09/07/23 07:40 Interval history: Doing well. Urinating without difficulty. Denies passing any large clots. Denies dizziness with ambulating. Tolerating po food and fluids. Bonding with . Cramping with . [place] baby status: doing well and nursing well feeding status: exclusively breast feeding OB - PN: Obj Data Labs 09/07/23 04:44 Labs: Laboratory Results - last 24 hr 09/06/23 09/07/23 07:01 04:44 Hgb 10.9 L Hct 33.6 L RPR Non-reactive Blood Type B Positive Antibody Screen Negative OB - PN A/P Plan day: 1 Plan: routine care Time Spent With Patient Time: Total time spent is greater than 50% in coordination of care (as documented) at patient's floor/unit and/or counseling patient: Review of Systems Review of Systems: All systems reviewed & are unremarkable except as noted in HPI and below Exam Narrative: Alert and oriented. Mood is pleasant and cooperative. Perineum with minimal edema. Fundus firm and below umbilicus. Const: General: cooperative, healthy appearing, no acute distress and alert Orientation/consciousness: patient oriented x3 Limitations: no limitations Resp: Effort & Inspection: normal respiratory effort and able to speak in complete sentences Auscultation: clear to auscultation bilaterally Cardio: Rate: regular rate GI: Inspection: normal to inspection Auscultation: normal bowel sounds : General: Yes bladder normal to palpation External Female Exam: other (lochia WNL) Bimanual exam- vagina & uterus: bladder normal to palpation Other: Fundus firm and below U Skin: General skin exam: normal color and no rashes or lesions noted Neuro: General: patient oriented x3 and moves all extremities Cognition (Neuro): normal cognition Extrem: General: normal to inspection and no calf tenderness Psych: Appearance: grossly normal Mental Status: mental status grossly normal Affect: normal affect Thought process: Normal thought process present
[2023-09-07] MEDS: MULTIVIT/MIN/PREN/FOL AC/IRON TABLET 1 TAB PO (08:35)
[2023-09-07] MEDS: DOCUSATE SODIUM 100 MG CAPSULE PO (08:35)
[2023-09-08 08:43] VITALS: BP 133/81; PULSE 86; RESP 18; TEMP 36.6; O2SAT 98
== END 2023-09-07 12:53 | disposition home or self-care (01) | DRG 807 ==
LOC: ANHLDR 11:31 → ANHOB2 13:32
PROVIDERS: Admitting Provider Obstetrics & Gynecology Gynecology; PCP Advanced Practice Midwife; Visit Provider Obstetrics & Gynecology Gynecology
DX: O32.9XX0 Maternal care for malpresentation of fetus, unspecified, not applicable or unspecified (principal); Z37.0 Single live birth; Z3A.39 39 weeks gestation of pregnancy; O77.0 Labor and delivery complicated by meconium in amniotic fluid
CPT/HCPCS: 36415; 85014; 85018; 85025; 86592; 86850; 86900; 86901; 88307; A9270; J2795; J3010; J7120

== ENCOUNTER 2024-03-11 15:19 | Emergency (ER) | payer OTHER, SELFPAY ==
[2024-03-11 15:22] VITALS: BP 125/77; PULSE 78; RESP 16; TEMP 36.9; O2SAT 98
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
== END 2024-03-11 16:16 | disposition home or self-care (01) ==
PROVIDERS: Emergency Provider Physician Assistant; PCP Advanced Practice Midwife
DX: S39.012A Strain of muscle, fascia and tendon of lower back, initial encounter (principal); X50.0XXA Overexertion from strenuous movement or load, initial encounter
CPT/HCPCS: 81025; 99283

== ENCOUNTER 2025-09-04 11:55 | Outpatient (CLI) | payer OTHER, SELFPAY ==
--- OUTSIDE RECORDS SUMMARY | 2025-09-04 11:57 | XMS_ITS | Clinical Summary ---
Author Organization 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 [employer] Member Subscriber Plan / Payer (Ef fective 2025-Present) Name:Lori Biswas Relation to Subscriber:Self Name:Lori Biswas Payer ID:Not on file Group ID:Not on file Type:HMO Address: [facility] [id number] [place] [id number]
--- OUTSIDE RECORDS SUMMARY | 2025-09-04 11:58 | XMS_ITS | Clinical Summary ---
Author Organization [facility] [id number] [facility] Address [address] [place] [address] Care Team Providers Care Announcer Name Role Phone Dianna Huertas Primary Care Provider [phone] Allergies Active Allergy Reactions Criticality Noted Date Comments Sulfa (Sulfonamide Antibiotics) Hives Medium 10/2018 Medications clindamycin (CLINDAGEL) 1 % gel Apply to face twice daily. 60 g 05/13/2020 Active vit,svsc61-mrvd- folic (PRENATABS RX) tablet tablet Take 1 tablet by mouth daily 90 tablet 3 01/02/2021 Active Vitamin 27 mg iron- 0.8 mg tablet Take 1 tablet by mouth once daily 91 tablet 12/10/2021 Active Active Problems Problem Noted Date Diagnosed Date Amenorrhea 01/03/2021 Assessment & Plan (01/03/2021 2:07 PM CDT): Discussed with patient including SENIOR TECHNICAL ANALYST care/referral, good nutrition, mercury contamination in fish, safe medications, exercise, PNVitamins and followup care. She is to call if has any bleeding/spotting before she sees the SENIOR TECHNICAL ANALYST which is usually around 12 weeks. Unknown last menstrual period so unsure of dating. Will obtain a beta hCG to confirm as well as estimate dating. Pending those results we will consider ultrasound but discussed with patient good to know the beta hCG value is to determine approximate dating and hence expectations for sizing as well as heartbeat at this point. This was all explained in detail to patient and her and all questions were answered. Await beta hCG results. Positive test 01/03/2021 Assessment & Plan (01/03/2021 2:08 PM CDT): Discussed with patient including SENIOR TECHNICAL ANALYST care/referral, good nutrition, mercury contamination in fish, safe medications, exercise, PNVitamins and followup care. She is to call if has any bleeding/spotting before she sees the SENIOR TECHNICAL ANALYST which is usually around 12 weeks. Unknown last menstrual period so unsure of dating. Will obtain a beta hCG to confirm as well as estimate dating. Pending those results we will consider ultrasound but discussed with patient good to know the beta hCG value is to determine approximate dating and hence expectations for sizing as well as heartbeat at this point. This was all explained in detail to patient and her and all questions were answered. Await beta hCG results. Acne 05/13/2020 Assessment & Plan (05/13/2020 10:10 AM CDT): Continue good skin care. Start Clinda Gel bid Reviewed skin may get a little worse before it gets better. Will continue to monitor and hopefully get out of these masks soon. Dysuria 11/27/2019 Assessment & Plan (11/27/2019 11:47 AM CDT): Dysuria but dip had just a trace of Leukocytes. Will send for culture and wait results to treat. Pyridium to the pharmacy Discussed IC/painful bladder if culture is negative. Increase bladder care. Slow transit constipation 11/27/2019 Assessment & Plan (11/27/2019 11:49 AM CDT): Increase fiber, exercise and water. Start Colace daily. Use miralax prn. Avoid stimulant laxatives. BMI 30.0-30.9,adult 01/11/2019 Assessment & Plan (05/13/2020 10:10 AM CDT): Obesity is improved. Discussed the patient's BMI. The BMI is above average. BMI management plan is completed. BMI Follow-up includes: nutrition counseling, exercise counseling and education provided. Assessment & Plan (01/12/2019 3:32 PM CDT): Obesity is unchanged. Discussed the patient's BMI. The BMI is above average; BMI management plan is completed. General weight loss/lifestyle modification strategies discussed (elicit support from others; identify saboteurs; non-food rewards, etc). Obesity (BMI 30-39.9) 01/11/2019 Assessment & Plan (05/13/2020 10:09 AM CDT): Obesity is improved. Discussed the patient's BMI. The BMI is above average. BMI management plan is completed. BMI Follow-up includes: nutrition counseling, exercise counseling and education provided. Assessment & Plan (11/27/2019 11:33 AM CDT): Obesity is unchanged. Discussed the patient's BMI. The BMI is above average. BMI management plan is completed. BMI Follow-up includes: nutrition counseling, exercise counseling and education provided. Assessment & Plan (01/12/2019 3:31 PM CDT): Obesity is unchanged. Discussed the patient's BMI. The BMI is above average; BMI management plan is completed. General weight loss/lifestyle modification strategies discussed (elicit support from others; identify saboteurs; non-food rewards, etc). Resolved Problems Problem Noted Date Diagnosed Date Resolved Date Encounter for surveillance o f contraceptive pills 05/13/2020 01/03/2021 Assessment & Plan (05/13/2020 10:11 AM CDT): Continue with OCP refill sent to pharmacy. Need for Tdap vaccination 05/13/2020 Assessment & Plan (05/13/2020 10:11 AM CDT): Updated in office today Encounter for immunization 05/13/2020 0 01/03/2021 Assessment & Plan (05/13/2020 10:11 AM CDT): Tdap was updated in office today. Duplicate diagnosis and cannot remove as connected to the vaccine. Uses control 01/12/2019 0 Overview (01/12/2019): Happy with ocp. Refills to pharm Assessment & Plan (05/13/2020 10:10 AM CDT): Continue with OCP. Refills sent to pharmacy. Screening examination for ST D (sexually transmitted disease) 01/11/2019 05/13/2020 Assessment & Plan (01/12/2019 3:32 PM CDT): STD screening labs provided today Annual physical exam 01/11/201901/03/ 021 Assessment & Plan (05/13/2020 10:10 AM CDT): Encouraged healthy lifestyle, good nutrition and exercise. Encouraged Calcium and Vitamin D and weight bearing exercise for bone health. Reviewed immunizations Reviewed age appropirate screenings. Assessment & Plan (01/12/2019 3:31 PM CDT): Encouraged healthy lifestyle, good nutrition and exercise. Encouraged Calcium and Vitamin D and weight bearing exercise for bone health. Reviewed immunizations Reviewed age appropirate screenings. Immunizations Immunization Administration Dates Next Due Influenza, Unspecified 06/12/2020(Deferr ed: Patient Refused),11/27/2019(Deferred: Patient Refused) Tdap 05/13/2020 Family History Medical History Relation Name Comments Hypertension Father Anemia Mother Relation Name Status Comments Father Mother Social History Tobacco Use Types Packs/Day Years Used Date Smoking Tobacco: Never Smokeless Tobacco: Never Alcohol Use Standard Drinks/Week Comments Yes 0 (1 standard drink = 0.6 oz pur e alcohol) socially PHQ-2 Answer Date Recorded PHQ-2 Total Score (If total score is 3 or more points, staff should administer the PHQ-9) 2 05/13/2020 Comments Unknown Sex and Gender Information Value Date Recorded Sex Assigned at Not on file Legal Sex Female 8:13 AM CDT Gender Identity Not on file Sexual Orientation Not on file 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 on file Not on file Not on file Last Filed Vital Signs Vital Sign Reading Time Taken Comments Blood Pressure 108/76 05/13/2020 9:07 AM CDT Pulse 80 05/13/2020 9:07 AM CDT Temperature 36.4 C (97.5 F) 05/13/2020 9:07 AM CDT Respiratory Rate 16 05/13/2020 9:07 AM CDT Oxygen Saturation 97% 05/13/2020 9:07 AM CDT Inhaled Oxygen Concentration - - Weight 85 kg (187 lb 6.4 oz) 05/13/2020 9:07 AM CDT Height 168.3 cm (5' 6.25) 05/13/2020 9:07 AM CD T Body Mass Index 30.02 05/13/2020 9:07 AM CDT Plan of Treatment Health Maintenance Due Date Last Done Comments Cervical Cancer Screening 1993 Varicella Vaccines (1 of 2 - 13+ 2-dose series) 2006 Hepatitis B Screening 2011 HPV Vaccines (1 - 3-dose SCD M series) 2020 Depression Screening 05/13/2021 05/13/2020, 01/11/2019 Regular Well Visit/Exam 18-64 05/13/2021, 01/11/2019 Influenza Vaccine (#1) 2025 DTaP/Tdap/Td Vaccine (2 - Td or Tdap) 05/13/2030 05/13/2020 Hepatitis C Screening Completed 01/11/2019 Pneumococcal vaccine <65 Aged Out No longer eligible based on patient's age to complete this topic Procedures Procedure Name Priority Date/Time Associated Diagnosis Comments HEPATITIS PANEL, ACUTE Routine 01/11/2019 8:59 AM CDT Screening examination for STD (sexually transmitted disease) from Last 3 Months or Most Recently Relevant to Health Maintenance Results * Hepatitis panel, acute (01/11/2019 8:59 AM CDT) Hep A IgM NON-REACT [place] NON-REACT [place] [facility] [place] HepBsAg NON-REACT [place] NON-REACT [place] [facility] [place] Hep B core IgM NON-REACT [place] NON-REACT [place] [facility] [place] Hep C Ab NON-REACT [place] NON-REACT [place] [facility] [place] SIGNAL TO CUT-OFF 0.02 <1.00 [facility] [place] Comment: HCV antibody was non-reactive. There is no laboratory evidence of HCV infection. In most cases, no further action is required. However, if recent HCV exposure is suspected, a test for HCV RNA (test code 17906) is suggested. For additional information please refer to http://education.Rocawear/faq/WLB60p1 (This link is being provided for informational/ educational purposes only.) Blood specimen (specimen) 01/11/2019 8:59 AM CDT 01/11/2019 9:00 AM CDT Narrative [facility] - 01/15/2019 7:16 AM CDT FASTING:NO FASTING: NO Resulting Agency Comment Performing Organization Information: Site ID: [id number] Name: [facility] Address: [address] [place] [id number] Director: Mason Hathaway D.O., MPH Dianna [facility] MICROBIOLOGY - GENERAL ORDERABLES Final Result [facility] [place] from Last 3 Months or Most Recently Relevant to Health Maintenance [facility] [id number] Care Teams Announcer Relationship Specialty Start Date End Date Dianna Huertas PA [address] [facility] [address] [place] [address] PCP - General Internal Medicine 01/10/19
[2025-09-04 14:39] LABS: Hematocrit 33.0 % (37.0-47.0); Hemoglobin 11.2 g/dL (12.0-15.0); Mean Corpuscular HGB Conc 33.9 g/dl (32-36); Mean Corpuscular Hemoglobin 28.8 pg (26-34); Mean Corpuscular Volume 84.8 fl (80-100); Platelet Count Result 244 k/mm3 (150-375); Red Blood Count 3.89 M/mm3 (4.2-5.4); White Blood Count 12.4 K/mm3 (4.5-10.0)
[2025-09-04 14:52] LABS: Glucose 1 Hour PP 50gm Dose 103 mg/dL
[2025-09-04 15:28] LABS: Syphilis IgG/IgM Antibody Non-Reactive (Nonreactive)
[2025-09-04 15:34] LABS: HIV 1/2 Ab P24 Ag Result Negative (Negative)
== END 2025-09-04 11:56 | disposition home or self-care (01) ==
LOC: ANHLAB 11:56
PROVIDERS: PCP Nurse Practitioner Family; Visit Provider Student in an Organized Health Care Education/Training Program
DX: Z34.90 Encounter for supervision of normal pregnancy, unspecified, unspecified trimester (principal); Z3A.00 Weeks of gestation of pregnancy not specified
CPT/HCPCS: 36415; 82947; 85027; 86593; 86703; G0432